=== PATIENT | female | born 1945 | race Caucasian/White ===

== ENCOUNTER 2023-10-25 21:24 | Emergency (ER) | payer OTHER ==
[~2023-10-25] VITALS: Ht 167.6 cm; Wt 70.4 kg
[2023-10-25 21:31] VITALS: TEMP 98.2
[2023-10-25 22:00] VITALS: BP 137/70; PULSE 83; RESP 18; O2SAT 98
[2023-10-25] MEDS: acetaminophen 325mg tablet PO ONE (23:11)
== END 2023-10-26 06:35 | disposition home or self-care (01) ==
LOC: ER 21:27
DX: S40.021A Contusion of right upper arm, initial encounter (principal); Z88.5 Allergy status to narcotic agent; Z91.013 Allergy to seafood; W19.XXXA Unspecified fall, initial encounter; Y93.89 Activity, other specified; Y92.89 Other specified places as the place of occurrence of the external cause; Y99.8 Other external cause status
CPT/HCPCS: 73060; 73080; 99284; A4565

== ENCOUNTER 2023-11-07 20:50 | Emergency (ER) | payer OTHER ==
[~2023-11-07] VITALS: Ht 167.6 cm; Wt 68.2 kg
[2023-11-07 21:19] VITALS: TEMP 97.7
[2023-11-07] MEDS: LIDOcaine 1% 30ml preserv. free vial IJ STA (23:13)
[2023-11-08 01:10] VITALS: BP 117/64; PULSE 98; RESP 17; O2SAT 98
[2023-11-12] MEDS ORDERED: ALEN70TA60 PO (00:21)
[2023-11-12] MEDS ORDERED: ASPI-1265 PO (00:21)
[2023-11-12] MEDS ORDERED: ARIP5TAB14 PO (00:21)
[2023-11-12] MEDS ORDERED: BUPR150T8 PO (00:22)
[2023-11-12] MEDS ORDERED: LORA10CA PO (00:23)
[2023-11-12] MEDS ORDERED: DONE10TA44 PO (00:24)
[2023-11-12] MEDS ORDERED: LORA-268 PO (00:25)
[2023-11-12] MEDS ORDERED: FOLI-91 (00:25)
[2023-11-12] MEDS ORDERED: SERT25TA PO (00:25)
[2023-11-12] MEDS ORDERED: ERGO400C PO (00:26)
[2023-11-12] MEDS ORDERED: ASPI-1140 PO (00:26)
== END 2023-11-08 01:19 | disposition home or self-care (01) ==
LOC: ER 20:50
DX: S01.511A Laceration without foreign body of lip, initial encounter (principal); Z88.5 Allergy status to narcotic agent; Z91.013 Allergy to seafood; W18.39XA Other fall on same level, initial encounter; Y93.89 Activity, other specified; Y92.89 Other specified places as the place of occurrence of the external cause; Y99.8 Other external cause status
CPT/HCPCS: 40650; 99284

== ENCOUNTER 2024-05-24 11:45 | Emergency (ER) | payer MEDICARE ==
[~2024-05-24] VITALS: Ht 167.6 cm; Wt 72.7 kg
[~2024-05-24 11:45] MED LIST: ALEN70TA60 PO; ASPI-1140 PO; ASPI-1265 PO; BUPR150T8 PO; DONE10TA44 PO; ERGO400C PO; FOLI-91; SERT25TA PO
[2024-05-24] MEDS: ondansetron/PF 4mg/2ml inj IV ONE (12:20)
[2024-05-24 12:36] LABS: BASOPHILS % (AUTO) 0.2 % (0-1); EOSINOPHILS # (AUTO) 0.1 X10'3 (0-0.9); EOSINOPHILS % (AUTO) 0.7 % (0-6); HEMATOCRIT 42.3 % (35.0-45.0); HEMOGLOBIN 13.6 g/dl (12.0-16.0); LYMPHOCYTES # (AUTO) 0.8 X10'3 (1.1-4.8); LYMPHOCYTES % (AUTO) 9.3 % (21-51); MEAN CORPUSCULAR HEMOGLOBIN 29.9 PG (27.0-31.0); MEAN CORPUSCULAR HGB CONC 32.1 g/dL (33.0-36.5); MEAN CORPUSCULAR VOLUME 92.9 FL (78-98); MEAN PLATELET VOLUME 8.6 FL (7.4-10.4); MONOCYTES # (AUTO) 0.5 X10'3 (0-0.9); MONOCYTES % (AUTO) 6.2 % (2-12); NEUTROPHILS # (AUTO) 7.2 X10'3 (1.8-7.7); NEUTROPHILS % (AUTO) 83.6 % (42-75); PLATELET COUNT 100 X10'3 (140-440); RED BLOOD COUNT 4.55 X10'6 (4.20-5.60); RED CELL DISTRIBUTION WIDTH 14.8 % (11.5-14.5); WHITE BLOOD COUNT 8.6 X10'3 (4.5-11.0)
[2024-05-24 12:38] LABS: ALANINE AMINOTRANSFERASE 30 U/L (12-78); ALBUMIN 3.2 G/DL (3.4-5.0); ALKALINE PHOSPHATASE 120 IU/L (46-116); ANION GAP 8 (8-16); ASPARTATE AMINO TRANSFERASE 22 U/L (10-37); BILIRUBIN,TOTAL 0.3 MG/DL (0.1-1.0); BLOOD UREA NITROGEN 16 MG/DL (7-18); BUN/CREATININE RATIO 16.3 (10.0-20.0); CALCIUM 9.3 MG/DL (8.5-10.1); CHLORIDE 102 MMOL/L (99-107); CREATININE 0.98 MG/DL (0.40-0.90); GLUCOSE 125 MG/DL (70-104); LIPASE 54 U/L (16-77); POTASSIUM 3.6 MMOL/L (3.5-5.1); SODIUM 138 MMOL/L (135-145); TOTAL CARBON DIOXIDE 28.1 MMOL/L (24-32); TOTAL PROTEIN 6.5 G/DL (6.4-8.2); eCRCL 44 ML/MIN; eGFR 55 ML/MIN
[2024-05-24 15:27] VITALS: TEMP 97.6
[2024-05-24 15:32] LABS: BILIRUBIN,URINE NEGATIVE (Neg); CLARITY,URINE CLOUDY (Clear); COLOR,URINE YELLOW (Yellow); GLUCOSE, URINE NEGATIVE (Neg); KETONES,URINE NEGATIVE (Neg); LEUKOCYTE ESTERASE ,URINE NEGATIVE (Neg); NITRITES, URINE NEGATIVE (Neg); OCCULT BLOOD,URINE NEGATIVE (Neg); PROTEIN,URINE NEGATIVE (Neg); UROBILINOGEN,URINE 0.2 E.U/dL (0.2-1.0)
[2024-05-24 15:37] LABS: UA COLLECTION TYPE CLN CATCH MIDSTREAM
[2024-05-24 15:38] LABS: AMORPHOUS PHOSPHATES 4+; SQUAMOUS EPITHELIAL CELL,UR FEW /LPF (FEW)
[2024-05-24 15:39] LABS: BACTERIA,URINE FEW /HPF (Neg); WBC,URINE 0-4 /HPF (0-4)
[2024-05-24 16:51] VITALS: BP 152/75; PULSE 76; RESP 15; O2SAT 99
== END 2024-05-24 17:07 | disposition home or self-care (01) ==
LOC: ER 11:46
DX: R07.89 Other chest pain (principal); R10.13 Epigastric pain; Z88.5 Allergy status to narcotic agent; Z91.013 Allergy to seafood; Z79.899 Other long term (current) drug therapy; Z79.82 Long term (current) use of aspirin
CPT/HCPCS: 36415; 71045; 80053; 81001; 83690; 84484; 85025; 93005; 96374; 99285; J2405

== ENCOUNTER 2024-10-20 22:29 | Emergency (ER) | payer MEDICARE ==
[~2024-10-20] VITALS: Ht 165.1 cm; Wt 67.1 kg
[2024-10-21 04:27] VITALS: TEMP 98.2
[2024-10-21 05:36] VITALS: BP 101/54; PULSE 68; RESP 15; O2SAT 96
== END 2024-10-21 05:46 | disposition home or self-care (01) ==
LOC: ER 22:29
DX: S00.01XA Abrasion of scalp, initial encounter (principal); F03.90 Unspecified dementia, unspecified severity, without behavioral disturbance, psychotic disturbance, mood disturbance, and anxiety; Z91.013 Allergy to seafood; Z88.5 Allergy status to narcotic agent; Z79.82 Long term (current) use of aspirin; Z79.899 Other long term (current) drug therapy; W18.39XA Other fall on same level, initial encounter; Y93.89 Activity, other specified; Y92.89 Other specified places as the place of occurrence of the external cause; Y99.8 Other external cause status
CPT/HCPCS: 70450; 72125; 93005; 99285

== ENCOUNTER 2025-08-01 07:19 | Inpatient (IN) | payer MEDICARE ==
[~2025-08-01] VITALS: Ht 165.1 cm; Wt 68.0 kg
[2025-08-01] MEDS: TETanus/Pertussis (Acell)/Diphther VAC/PF (Tdap-Adult) 0.5ml syringe IMVAC ONE (08:03)
--- NOTE | 2025-08-01 08:10 | RADIOLOGY REPORT ---
CLINICAL INFORMATION: Fall injury. TECHNIQUE: Axial imaging was obtained through the brain without contrast. Axial CT imaging of the cervical spine was also obtained without contrast. Coronal and sagittal reformatted images were obtained, reviewed, and stored. One or more of the following dose reduction techniques were used: Automated exposure control. Adjustment of mA and/or kV according to patient size. CTDIvol = 72.45 mGy DLP = 1363.41 mGy-cm COMPARISON: CT CT HEAD on DOS: 10/20/24, CT CT HEAD on DOS: 11/11/23. CT cervical spine dated 11/11/2023. FINDINGS: CT HEAD: There is no acute intracranial hemorrhage. No mass effect or midline shift. The ventricles and sulci are within normal limits in size for age. Basal cisterns are patent. Scattered areas of hypoattenuation are seen in the periventricular and subcortical white matter, which are nonspecific but most likely sequelae of small vessel ischemic disease.The calvarium is unremarkable. Paranasal sinuses and mastoid air cells are clear. CT CERVICAL SPINE: Postsurgical changes of posterior spinal fusion extending from C2 through C7. Surgical hardware is intact. Vertebral body alignment is within normal limits. Minimal anterolisthesis of C6 on C7. Vertebral body heights are maintained. No evidence of acute fracture. Multilevel severe disc space narrowing with associated endplate sclerosis and endplate spurring. Multilevel facet and uncinate hypertrophy with areas of moderate to severe neural foraminal stenosis. Prevertebral and paraspinal soft tissues are unremarkable. Moderate atherosclerotic calcification at the carotid bifurcations and proximal internal carotid arteries bilaterally. Bilateral adrenal nodules measuring up to 1 cm on the right and 0.8 cm on the left. IMPRESSION: 1. No CT evidence of acute intracranial abnormality. 2. No evidence of acute fracture in the cervical spine. 3. Postsurgical changes in the cervical spine as detailed above. Surgical hardware appears intact. 4. Degenerative disc disease and facet/ uncinate disease in the cervical spine as detailed above. 5. Bilateral adrenal nodules. Based on size and patient age, no follow-up imaging is needed for these nodules per ACR white paper on incidentally detected thyroid nodules, unless clinically indicated. 6. Additional nonacute findings as described above.
--- NOTE | 2025-08-01 08:13 | ELECTROCARDIOGRAPH REPORT ---
[facility] Test Date: 2025-08-01 Test Time: 07:29:18 Pat Name: ADELINE MEJIA Department: EMERGENCY ROOM Patient ID: [facility]-[id number] Room: Gender: F [employer] Information Clerk: ANA PAULA : 1945 Requested By: ALDO LIN Order Number: [id number] Reading MD: Dr. Aldo Lin Measurements Intervals [place] Rate: 76 P: 64 FL: 144 QRS: -2 QRSD: 89 T: 47 QT: 464 QTc: 522 Interpretive Statements Sinus rhythm Atrial premature complexes Borderline low voltage, extremity leads Minimal ST depression, lateral leads Prolonged QT interval Baseline wander in lead(s) V3 Electronically Signed On 08-01-2025 9:40:[address] Aldo Lin Please click the below link to view image of tracing.
[2025-08-01 08:23] LABS: MEAN PLATELET VOLUME 8.3 FL (7.4-10.4); RED CELL DISTRIBUTION WIDTH 14.1 % (11.5-14.5)
--- NOTE | 2025-08-01 08:31 | RADIOLOGY REPORT ---
EXAM: DI CHEST,SINGLE VIEW Indication: CHEST PAIN Technique: Single frontal view of the chest was obtained Comparison: DI CHEST,SINGLE VIEW on DOS: 05/24/24, DI CHEST,SINGLE VIEW on DOS: 11/11/23 FINDINGS: Lines and Tubes: None Lungs: Left retrocardiac opacity. Pleura: No effusion. No pneumothorax. Cardiomediastinal contours: Unremarkable. Suggestion of a large hiatal hernia. Bones: No acute osseous abnormality. IMPRESSION: Suggestion of a large hiatal hernia with left retrocardiac opacity.
[2025-08-01 08:32] LABS: CREATININE 1.02 MG/DL (0.40-0.90); TOTAL CARBON DIOXIDE 32.1 MMOL/L (24-32); eCRCL 40 ML/MIN; eGFR 52 ML/MIN
[2025-08-01 09:11] LABS: LEUKOCYTE ESTERASE ,URINE NEGATIVE (Neg); NITRITES, URINE NEGATIVE (Neg); OCCULT BLOOD,URINE NEGATIVE (Neg)
--- NOTE | 2025-08-01 09:12 | Physician Documentation ---
History of Present Illness ~ Chief Complaint: Mechanical Fall Stated Complaint: FALL Time Seen by MD: 07:26 OK to notify your PCP?: Yes Primary Medical Doctor: NONE Source: patient, RN/MD, EMS, RN notes reviewed, old records Mode of Arrival: EMS, Stretcher Exam Limitations: no limitations HPI Pleasant 79-year-old female with a history of severe dementia lives in a half-way facility. She lives with a cat. Patient fell today. She denies any chest pain for generalized weakness. She is wheelchair-bound. She takes aspirin for a stroke has some borderline ptosis but otherwise no generalized weakness. Severe dementia. Today she does not recall the events fell hit her head has a laceration approximately 2 cm in the occipital area. Unknown about the tetanus. Patient was brought in by ambulance in his here for evaluation. is at the bedside. Patient has a limited history majority of the history is obtained by EMS and medical records. Tetanus within 5 Years?: Yes Medication Reconciliation Allergies: Coded Allergies: codeine (Verified Allergy, Unknown, 08/01/25) hydrocodone (Verified Allergy, Unknown, 10/25/23) shellfish derived (Verified Allergy, Unknown, 10/25/23) Scheduled Alendronate Sodium* (Fosamax*), 1 TAB PO Q7D, (Reported) Aspirin (Aspirin), 1 TAB PO DAILY, (Reported) Bupropion Hcl SR* (Wellbutrin SR*), 1 TAB PO DAILY Cholecalciferol (Vitamin D3) (Vitamin D3), 1 CAP PO DAILY, (Reported) Donepezil Hcl (Donepezil Hcl), 1 TAB PO DAILY, (Reported) Sertraline Hcl* (Zoloft*), 1 TAB PO DAILY, (Reported) Miscellaneous Medications Aspirin/Acetaminophen/Caffeine (Excedrin Caplet), 1 EACH PO, (Reported) Folic Acid/Mv,Fe,Other Min (One Daily For Women Tablet), (Reported) Past Medical History Past Medical History: No Pertinent History Past Surgical History: noncontributory Alcohol Use: None Drug Use: none Review of Systems All Other Systems at this time: Reviewed and Negative Physical Exam Vital Signs: RN Vital Signs have been reviewed: Yes, Temperature: 97.7, Source: Oral, Heart Rate: 84, Respiratory Rate: 16, BP: 128/83, Pulse Oximetry: 97, Weight: 68.000 Oxygen Flow Rate: 0 Physical Exam General: The patient is well developed, well nourished, nontoxic appearing and is in no acute distress. Dementia Skin: Advance, warm and dry with no rashes. HEENT: Head was normocephalic and traumatic, 2 cm occipital horizontal superficial laceration bleeding controlled. Eyes - pupils equal, round, reactive to light and accommodation. Extraocular movements were intact. Conjunctivae we re nonicteric. Slight ptosis of the left upper eyelid. The mouth and oropharynx were clear with moist mucous membranes. There were no pharyngeal exudates or erythema. Neck: Supple and nontender. There was no jugular venous distention, lymphadenopathy, thyromegaly or masses. Chest: Clear to auscultation bilaterally without wheezes, rales or rhonchi. No accessory muscle use. Heart: Rate regular and rhythmic. S1, S2. No murmurs. Palpation of the chest wall was normal. Abdomen: Soft, nontender and nondistended. Positive bowel sounds. No guarding or rebound. Extremities: No cyanosis, clubbing or edema. The patient moves all extremities. Pulses were equal and symmetric. Neurologic: Cranial nerves II-XII were intact. Sensation was intact to light touch throughout. Motor strength was 5/5 in all four extremities. Deep tendon reflexes were intact in both upper and lower extremities. Slight ptosis of the left upper eyelid, wheelchair-bound Psychologic: The patient was oriented to person, place and time. The patient demonstrated appropriate judgement and insight. Procedures Procedures Head laceration and repair. Without anesthesia one suture was placed for 2 cm occipital superficial laceration to the back of her head. Patient tolerated the procedure without any complication. There was good alignment of the wound edges. Progress Progress Note Discussed the case with the hospitalist team who agreed to admit the patient for further workup and care. Results/Orders Reviewed/noted all lab results: Yes Results/Orders Orders - ZUHAIR ATKINSON MD Chest,Single View (08/01/25 08:03) Electrocardiogram (08/01/25 07:26) Ct Cervical Spine (08/01/25 07:52) Ct Head (08/01/25 07:52) Page Hospitalist (08/01/25 09:20) Fill Out Med Reconciliation (08/01/25 09:20) Completed Orders - ZUHAIR ATKINSON MD Cbc/Diff (08/01/25 07:26) MG (08/01/25 07:26) Chest,Single View (08/01/25 08:03) Electrocardiogram (08/01/25 07:26) BMP (08/01/25 07:26) Hs Troponin I W Calculations (08/01/25 07:26) Ct Cervical Spine (08/01/25 07:52) Ct Head (08/01/25 07:52) Tetanus/Pertuss/Diph Acell/Pf (Boostrix (08/01/25 07:30) Ua W/Microscopic, Cult If Ind (08/01/25 09:04) Aspirin 325mg Tablet (Aspirin 325mg Tabl (08/01/25 09:30) Medications Received in ER Medications (Trade) Dose Ordered Sig/Ruyd Route PRN Reason Start Time Stop Time Status Last Admin Dose Admin (Boostrix vaccine syringe) 0.5 ml ONCE ONCE IMVAC 08/01/25 07:30 08/01/25 07:31 DC 08/01/25 08:03 0.5 ML (aspirin 325mg tablet) 1 tab ONCE ONCE PO 08/01/25 09:30 08/01/25 09:31 DC 08/01/25 09:39 1 TAB Vital Signs 08/01/25 08/01/25 08/01/25 08/01/25 07:23 08:30 08:30 09:38 Temp 97.7 Pulse 76 84 85 Resp 16 16 16 16 B/P (MAP) 134/67 128/83 (98) 142/64 (90) Pulse Ox 98 97 95 O2 Flow Rate 0 0 0 Laboratory Tests Test 08/01/25 08:11 08/01/25 09:04 White Blood Count 8.4 Red Blood Count 4.21 Hemoglobin 13.5 Hematocrit 40.7 Mean Corpuscular Volume 96.7 Mean Corpuscular Hemoglobin 32.1 H Mean Corpuscular Hemoglobin Concent 33.2 Red Cell Distribution Width 14.1 Platelet Count 191 Mean Platelet Volume 8.3 Neutrophils (%) (Auto) 77.6 H Lymphocytes (%) (Auto) 14.3 L Monocytes (%) (Auto) 6.6 Eosinophils (%) (Auto) 1.0 Basophils (%) (Auto) 0.5 Neutrophils # (Auto) 6.5 Lymphocytes # (Auto) 1.2 Monocytes # (Auto) 0.6 Eosinophils # (Auto) 0.1 Basophils # (Auto) 0.0 CBC Comment Sodium Level 143 Potassium Level 3.8 Chloride Level 107 Carbon Dioxide Level 32.1 H Anion Gap 4 L Blood Urea Nitrogen 25 H Creatinine 1.02 H Estimated GFR/1.73 m2 52 BUN/Creatinine Ratio 24.5 H Glucose Level 88 Calcium Level 8.8 Magnesium Level 2.2 Troponin I High Sensitivity 119 *H Albumin 3.2 L Chemistry Comments Urine Specimen Description Non-specified Urine Color Yellow Urine Clarity Cloudy Urine pH 8.0 Urine Specific [place] 1.015 Urine Protein Negative Urine Glucose (UA) Negative Urine Ketones Negative Urine Occult Blood Negative Urine Nitrite Negative Urine Bilirubin Negative Urine Urobilinogen 0.2 Urine Leukocyte Esterase Negative Urine RBC 0-2 Urine WBC 0-4 Urine Squamous Epithelial Cells Few Urine Amorphous Phosphates 4+ Urine Bacteria None seen Urine Culture Indicated Not ind Volume Urine Centrifuged 10 ml Urine Comment Re-Evaluation Re-Evaluation : Re-Evaluation: Unchanged Progress Patient was seen and examined. Patient was given reassurance. Patient has a history of multiple falls. Laboratory work was obtained. CBC was within normal limits no leukocytosis no anemia unlikely to be infectious etiology. Chemistry however did show a troponin of 119. EKG has a prolonged QTC but no ST elevations order depression. Patient is asymptomatic. She lives in assisted living has significant dementia history of prior stroke listed as ptosis she is wheelchair-bound takes daily aspirin. Patient's urinalysis was within normal limits CT scan of the head and neck were within normal limits no intracranial bleed. Patient was given aspirin and admitted to the hospitalist service after her wounds were repaired. She appears well otherwise. Has been at the bedside. EKG/XRAY/CT/US/VASC/MRI Chest X-Ray : Interpreted By: both Views: 1 VIEW Additional Comments EXAM: DI CHEST,SINGLE VIEW Indication: CHEST PAIN Technique: Single frontal view of the chest was obtained Comparison: DI CHEST,SINGLE VIEW on DOS: 05/24/24, DI CHEST,SINGLE VIEW on DOS: 11/11/23 FINDINGS: Lines and Tubes: None Lungs: Left retrocardiac opacity. Pleura: No effusion. No pneumothorax. Cardiomediastinal contours: Unremarkable. Suggestion of a large hiatal hernia. Bones: No acute osseous abnormality. IMPRESSION: Suggestion of a large hiatal hernia with left retrocardiac opacity. : CT: head With Contrast?: No Impression CLINICAL INFORMATION: Fall injury. TECHNIQUE: Axial imaging was obtained through the brain without contrast. Axial CT imaging of the cervical spine was also obtained without contrast. Coronal and sagittal reformatted images were obtained, reviewed, and stored. One or more of the following dose reduction techniques were used: Automated exposure control. Adjustment of mA and/or kV according to patient size. CTDIvol = 72.45 mGy DLP = 1363.41 mGy-cm COMPARISON: CT CT HEAD on DOS: 10/20/24, CT CT HEAD on DOS: 11/11/23. CT cervical spine dated 11/11/2023. FINDINGS: CT HEAD: There is no acute intracranial hemorrhage. No mass effect or midline shift. The ventricles and sulci are within normal limits in size for age. Basal cisterns are patent. Scattered areas of hypoattenuation are seen in the periventricular and subcortical white matter, which are nonspecific but most likely sequelae of small vessel ischemic disease.The calvarium is unremarkable. Paranasal sinuses and mastoid air cells are clear. CT CERVICAL SPINE: Postsurgical changes of posterior spinal fusion extending from C2 through C7. Surgical hardware is intact. Vertebral body alignment is within normal limits. Minimal anterolisthesis of C6 on C7. Vertebral body heigh ts are maintained. No evidence of acute fracture. Multilevel severe disc space narrowing with associated endplate sclerosis and endplate spurring. Multilevel facet and uncinate hypertrophy with areas of moderate to severe neural foraminal stenosis. Prevertebral and paraspinal soft tissues are unremarkable. Moderate atherosclerotic calcification at the carotid bifurcations and proximal internal carotid arteries bilaterally. Bilateral adrenal nodules measuring up to 1 cm on the right and 0.8 cm on the left. IMPRESSION: 1. No CT evidence of acute intracranial abnormality. 2. No evidence of acute fracture in the cervical spine. 3. Postsurgical changes in the cervical spine as detailed above. Surgical hardware appears intact. 4. Degenerative disc disease and facet/ uncinate disease in the cervical spine as detailed above. 5. Bilateral adrenal nodules. Based on size and patient age, no follow-up imaging is needed for these nodules per ACR white paper on incidentally detected thyroid nodules, unless clinically indicated. 6. Additional nonacute findings as described above. Electronically Signed by:RICH FOOTE DO Ultrasound : Interpreted By: both Ultrasound of: head/neck Impression CLINICAL INFORMATION: Fall injury. TECHNIQUE: Axial imaging was obtained through the brain without contrast. Axial CT imaging of the cervical spine was also obtained without contrast. Coronal and sagittal reformatted images were obtained, reviewed, and stored. One or more of the following dose reduction techniques were used: Automated exposure control. Adjustment of mA and/or kV according to patient size. CTDIvol = 72.45 mGy DLP = 1363.41 mGy-cm COMPARISON: CT CT HEAD on DOS: 10/20/24, CT CT HEAD on DOS: 11/11/23. CT cervical spine dated 11/11/2023. FINDINGS: CT HEAD: There is no acute intracranial hemorrhage. No mass effect or midline shift. The ventricles and sulci are within normal limits in size for age. Basal cisterns are patent. Scattered areas of hypoattenuation are seen in the periventricular and subcortical white matter, which are nonspecific but most likely sequelae of small vessel ischemic disease.The calvarium is unremarkable. Paranasal sinuses and mastoid air cells are clear. CT CERVICAL SPINE: Postsurgical changes of posterior spinal fusion extending from C2 through C7. Surgical hardware is intact. Vertebral body alignment is within normal limits. Minimal anterolisthesis of C6 on C7. Vertebral body heights are maintained. No evidence of acute fracture. Multilevel severe disc space narrowing with associated endplate sclerosis and endplate spurring. Multilevel facet and uncinate hypertrophy with areas of moderate to severe neural foraminal stenosis. Prevertebral and paraspinal soft tissues are unremarkable. Moderate atherosclerotic calcification at the carotid bifurcations and proximal internal carotid arteries bilaterally. Bilateral adrenal nodules measuring up to 1 cm on the right and 0.8 cm on the left. IMPRESSION: 1. No CT evidence of acute intracranial abnormality. 2. No evidence of acute fracture in the cervical spine. 3. Postsurgical changes in the cervical spine as detailed above. Surgical hardware appears intact. 4. Degenerative disc disease and facet/ uncinate disease in the cervical spine as detailed above. 5. Bilateral adrenal nodules. Based on size and patient age, no follow-up imaging is needed for these nodules per ACR white paper on incidentally detected thyroid nodules, unless clinically indicated. 6. Additional nonacute findings as described above. Electronically Signed by:RICH FOOTE DO Date & Time: 08/01/25 0808 Heart Score: Heart Score Response (Comments) Value History Slightly Suspicious 0 EKG Repolarization Disturb 1 Age >65 2 Risk Factors 1 or 2 risk factors 1 Troponin >3 x's Normal limit 2 Total 6 Medical Decision Making Additional information obtaine: old records Findings See progress additional differential mentioned Differential Dx:Considerations: Include: Closed head injury, Cardiac injury, Fracture(s), Intraabdominal injury, Pneumothorax, Cerebral contusion, Pulmonary contusion, Spine injury, Tracheal injury, Urological injury, Vascular injury, Abrasion(s), Contusion(s), Foreign body(s), Hematoma(s), Laceration(s), Encephalopathy, Other Departure Disposition: 09 ADMITTED INPATIENT Admitted to Inpatient Unit: to hospitalist Admission Level of Care: PCU with Tele Impression: Primary Impression: NSTEMI (non-ST elevated myocardial infarction) Additional Impressions: Fall Qualified Codes: W19.XXXA - Unspecified fall, initial encounter Laceration of head Qualified Codes: S01.01XA - Laceration without foreign body of scalp, initial encounter Condition: Guarded Referrals: NO PRIMARY CARE PROVIDER (PCP) Education Educated: Patient Educated regarding: diagnosis, other Signature Scribe Signature: lp Attestation: The note accurately reflects work and decisions made by me.Zuhair Atkinson MD 08/01/25 09:11 ZUHAIR ATKINSON MD Aug 01, 2025 09:12
[2025-08-01 09:16] LABS: UA COLLECTION TYPE NON-SPECIFIED
[2025-08-01 09:19] LABS: AMORPHOUS PHOSPHATES 4+; SQUAMOUS EPITHELIAL CELL,UR FEW /LPF (FEW)
[2025-08-01] MEDS ORDERED: magnesium sulf-water 2g/50mL 50 ML IV PRN (11:25)
[2025-08-01] MEDS ORDERED: mag hydrox/Alum hydrox/simeth 30ml oral suspension PO PRN (11:25)
[2025-08-01] MEDS ORDERED: magnesium sulf-water 4G/100mL 100 ML IV PRN (11:25)
[2025-08-01] MEDS ORDERED: potassium Cl 20 mEq SR tablet PO PRN (11:25)
[2025-08-01] MEDS ORDERED: ondansetron/PF 4mg/2ml inj IV PRN (11:25)
[2025-08-01] MEDS ORDERED: potassium Cl 40MEQ/1/2NS 520ml 520 ML IV PRN (11:25)
[2025-08-01] MEDS ORDERED: magnesium Cl slow-release 64mg tablet PO PRN (11:25)
[2025-08-01] MEDS ORDERED: magnesium hydroxide 30ml (MOM) UD suspension PO PRN (11:25)
[2025-08-01] MEDS: normal saline 1000ml 1,000 ML IV SCH (11:49)
[2025-08-01 12:39] LABS: APTT 28 SECONDS (22-32); INR 1.1 INR
[2025-08-01 12:46] LABS: CREATININE 0.80 MG/DL (0.40-0.90); PHOSPHORUS 2.7 MG/DL (2.3-4.5); PRO BRAIN NATRIURETIC PEPTIDE 637 PG/ML (0-450); TOTAL CARBON DIOXIDE 28.9 MMOL/L (24-32); eCRCL 51 ML/MIN; eGFR 69 ML/MIN
[2025-08-01 14:41] VITALS: BP 121/59; PULSE 95; RESP 14; TEMP 98.7; O2SAT 96
--- NOTE | 2025-08-01 16:16 | HISTORY AND PHYSICAL-Residence ---
History & Physical Providers to CC Resident Creating Document: GENARO ALEXANDER, RES ~ History of Present Illness Primary Medical Doctor: IVA FARMER MD Reason for Admit\Complaint: Mechanical fall History of Present Illness Patient is a poor historian, history obtained from patient step-daughter (Annia- [phone])and son in law (Miko -[phone] ) and [facility] ([id number] ): A 78 years old female who is poor historian, history of Alzheimer's and dementia presented to ED via EMS from [facility] after a mechanical fall. Patient was doing well untill yesterday, today morning around 6:30 a.m. when she wake up, tried to get out of the bed to use the restroom, and had a ground level fall after 2-3 steps, no one witnessned event. Patient bed alarm was beeped, the nurse went and saw the patient on ground, with laceration on back of the head. As per the facility nurse, patient did not lost the consciousness or no altered mental status , no confusion, patient has gait and coordination problems and she is high risk for fall.Patient has history of multiple recurrent falls for the last 1-2 years. Patient even forgot to use wheelchair and falls in her room, multiple times. Patient denies headache, dizziness, fatigue, chest pain, difficulty in breathing, abdominal pain, acid reflux, abdominal distention, swellings. Patient takes medication for anxiety, depression. Patient reports that she does not have any family except step- daughter and son-in-law. Patient has advanced medical directive stating that patient should be on DNR / DNI and power of trial attorney is Florencia (patient's friend ) Allergies: Coded Allergies: codeine (Verified Allergy, Unknown, 08/01/25) hydrocodone (Verified Allergy, Unknown, 10/25/23) shellfish derived (Verified Allergy, Unknown, 10/25/23) Home Medications Home Medications Active Wellbutrin SR* (Bupropion HCl) 150 Mg Tablet.sa 1 Tab PO DAILY 30 Days LOOK-ALIKE SOUND-ALIKE DRUG buSPIRone & buPROPion Reported Excedrin Caplet (Aspirin/Acetaminophen/Caffeine) 250 Mg-250 Mg-65 Mg Tablet 1 Each PO Vitamin D3 (Cholecalciferol (Vitamin D3)) 10 Mcg (400 Unit) Capsule 1 Cap PO DAILY 30 Days Zoloft* (Sertraline HCl) 25 Mg Tablet 1 Tab PO DAILY 30 Days One Daily For Women Tablet (Folic Acid/Mv,Fe,Other Min) 0.4 Mg-18 Mg Tablet Donepezil Hcl 10 Mg Tablet 1 Tab PO DAILY 30 Days Aspirin 81 Mg Tab.chew 1 Tab PO DAILY 30 Days Fosamax* (Alendronate Sodium) 70 Mg Tablet 1 Tab PO Q7D 28 Days in the morning, at least 30 minutes before the first food, beverage, or medication of the day Past Medical History Past Medical History Alzheimer's Dementia Depression Anxiety Osteoporosis Past Surgical History Surgical History Comment Right knee surgery C-spine surgery Past Social History Social History Comment Patient lives at [facility] Smoking: Non-Smoker Alcohol Use: None Drug Use: None ROS All Other Systems: Reviewed and Negative ROS Constitutional: No fever, chills, dizziness, weight gain or loss, night sweats Eyes: No pain, erythema, discharge, blurring of vision ENT: No sore throat, epistaxis, tinnitus Cardiovascular:No chest pain, palpitations, syncope, lower extremity edema, paroxysmal nocturnal dyspnea Respiratory: No Shortness of breath and cough, No hemoptysis. Gastrointestinal:No Abdominal pain, vomiting,nausea and melena. Normal appetite. No constipation,diarrhea, hematemesis, Musculoskeletal: No swelling or edema of extremities. Integumentary: No change in skin, hair, nails. No swelling, bruising, abrasions Neurologic: No weakness,No headache, neck pain, numbness or tingling of the extremities, Psychiatric: No delusions, depression, loss of interest in normal activity or change in sleep pattern, hallucinations, suicidal ideations Endocrine: No fatigue, no weakness. polydipsia, polyuria, change in appetite, heat or cold intolerance, sweating, dry skin Hematological: No bleeding, petechiae, bruising Allergies: No asthma or urticaria Exam Vitals: Vital Signs Date Time Temp Pulse Resp B/P (MAP) Pulse Ox O2 Delivery O2 Flow Rate FiO2 08/01/25 15:08 93 08/01/25 14:41 98.7 14 121/59 (79) 96 Room Air 08/01/25 13:55 0 General: Awake , alert and oriented to time,place, person,not in distress HEENT: Mild laceration with xavi in occipital region of head, normocephalic, PERRLA, EOMI, anicteric sclera ; pink conjunctiva, moist mucos membranes Neck: Trachea midline. Supple, normal range of motion, no JVD, no lymphadenopathy Chest and Respiratory: Equal breath sounds bilaterally, no tachypnea, wheezing, ronchi,rubs .Chest wall is symmetric and without deformity. Cardiac: S1, S2 heard,Regular rate and rhythm, no murmurs ,no gallops, no rubs. Abdomen: Soft, No tenderness, No guarding or rigidity, Dinero's sign negative. normal bowel sounds x4 quadrant, no hepatosplenomegaly MSK: Range of motion of all extremities are normal. There is no joint pain or joint swelling or joint erythema. There is no muscle pain or tenderness or swelling. Multiple bruises over upper extremities. Contractures in both hands. Right knee surgical scar. Cervical spine scar. Extremities: warm, well-perfused, No cyanosis, clubbing, 2+ pulses felt Neurological: Mental status exam: alert and consciousness, orientation, memory, speech - Cranial nerve test: Cranial nerves II-XII intact. - Motor system: Normal Nutrition, normal tone, Power 5/5, no involuntary movements - Sensory system: Intact - Reflex testing: Biceps, triceps and knee reflexes 2+ - Cerebellar: Normal Skin: Warm and dry Diagnostic Data Last Recorded Lab Results: 08/01/25 0811 08/01/25 1214 Diagnostic Data: Laboratory Tests Test 08/01/25 12:14 Prothrombin Time 10.9 SECONDS (9.0-12.0) INR International Normalized Ratio 1.1 INR Activated Partial Thromboplast Time 28 SECONDS (22-32) Coagulation Comments Advance Care Planning Advanced Care plannin - 30 Minutes (Patient does not have any advance medical directive, considering old age ,severe dementia and Alzheimer's disease, poor decision-making capacity of the patient, code status was discussed with patient step-daughter and son-in-law and decided to be on DNR/DNI) Additional Plan Mechanical fall History of recurrent falls 2/2 Age-related deconditioning Balance and Gait Imbalance likely due to autonomic imbalance CT head and Ct spine-no acute abnormality Vitals are stable, Coagulation profile is normal CBC, urinalysis are normal, no electrolyte imbalances Follow up on TSH, HbA1c, orthostatic vitals Type 2 [place] with unknown etiology Patient has no chest pain and low heart score of 3. Serial troponins are 119,102 BNP 637, patient appears dry, no fluid overload and elevated BNP may be due to CHRISTOPHER EKG shows sinus rhythm with PACs and no ST changes. Telemetry showing sinus rhythm and continue telemetry monitoring Subcutaneous heparin 5000 units b.i.d. Continue aspirin 81 mg p.o. , atorvastatin 80 mg p.o. daily Follow up on echocardiogram Outpatient Cardiology referral for evaluation of PACs. Mild CHRISTOPHER, likely prerenal 2/2 vasomotor nephropathy Creatinine is 1.02, BUN 25, B/C -24, GFR-52, down trending IV NS @ 100 mL/hour Monitor BMP levels Hyperlipidemia LDL is 185 Started on atorvastatin 80 mg p.o. daily Hiatal hernia CXR shows incidental finding of large hiatal hernia with left retrocardiac opacity. Recommended outpatient management Alzheimer's disease Patient has severe dementia and continue home medication donepezil 10 mg p.o. daily Anxiety Continue home medications sertraline 25 mg p.o. daily Depression Continue home medication Wellbutrin 150 mg p.o. daily Osteoporosis Continue home medication Alendronate 70mg p.o. Q 7 D Code status: DNR/DNI DVT prophylaxis : Heparin Nutrition: Heart healthy Physical therapy: ordered Line/tube: PIV Analgesia/sedation: Morphine PRN Disposition: Continue telemetry monitoring, follow up on troponin levels, echocardiogram, PT evaluation & discharge plan Resident attestation The above note has been reviewed and supervised by a senior resident PGY2/PGY3 Patient was seen, examined and discussed with the attending physician, Dr. VANESA Alexander MD Internal Medicine Resident, PGY 1 Date of Service: Aug 01, 2025 Billing Provider: RADHA ALEXIS MD Common Visit Codes: [id number] INP/OBS CARE (HIGH) Secondary Visit Codes: [id number] CARE PLAN 30 MINUTES GENARO ALEXANDER, RES Aug 01, 2025 16:16 RADHA ALEXIS MD Aug 09, 2025 07:42
[2025-08-01 16:17] LABS: CHOL/HDL RATIO 3.8 (0.00-4.99); LDL CHOLESTEROL 185 MG/DL (50-100)
[2025-08-01 17:10] VITALS: RESP 16; O2SAT 96
[2025-08-01] MEDS ORDERED: non-formulary drug (Alendronate Sodium* (Fosamax*) 1 TAB) PO SCH (17:20)
[2025-08-01 18:00] VITALS: BP 131/51; PULSE 122; RESP 18; TEMP 97.8; O2SAT 96
--- NOTE | 2025-08-01 18:09 | CARDIOLOGY REPORT ---
APPROVED REPORT EXAM: Comprehensive 2D, Doppler, and color-flow Echocardiogram. Patient Location: [address] Blood Pressure: 121/59 mmHg Heart Rate: 94 bpm Rhythm: SINUS w/FREQUENT PACs Indications ABNORMAL EKG HS TROPONIN 119 Robot Technician: none Previous echo: 11/12/23 [facility] (EF 60-65%, mild MR, mild TR) 2D Dimensions RVDd 3.1 cm LA Diam 6.5 cm LVOT Diameter 2.00 (1.8-2.4cm) Ao Asc Diam. 2.74 cm IVC 17.36 mm M-Mode Dimensions Left Atrium(MM) 2.21 (2.5-4.0cm) Aortic Root 2.72 (2.2-3.7cm) Aortic Cusp Exc 1.70 (1.5-2.0cm) Biplane 2D LA Volumes LA ESV Index 68.75 mL/m2 Aortic Valve AoV Peak Saulo. 144.6 cm/s AoV VTI 25.3 cm AO Peak GR. 8.4 mmHg AO Mean GR. 4 mmHg LVOT VTI 23.26 cm LVOT Peak Saulo. 116.5 cm/s VANESSA(VTI)/BSA 2.88 cm2/m2 VANESSA (VTI) 2.88 cm2 AV DI 0.92 % Mitral Valve MV Peak Gr. 3 mmHg MV PHT 52 ms MVA (PHT) 4.23 cm2 MV VMax 93.1 cm/s Tricuspid Valve TR P. Velocity 269 cm/s RAP ESTIMATE 10 mmHg TR Peak Gr. 29 mmHg RVSP 39 mmHg LEFT VENTRICLE Normal LV size and function. Mild concentric hypertrophy. LVEF is 60-65%. RIGHT VENTRICLE RV is normal size and function. Thickened RV free wall. RVSP is estimated at 39 mmHg. ATRIA Left atrium is severely dilated. RA appears mildly dilated. AORTIC VALVE Trileaflet AV appears mildly sclerotic without stenosis or insufficiency. MITRAL VALVE Mild MV annular calcification without stenosis. Moderate regurgitation. TRICUSPID VALVE TV appears structurally normal with trace regurgitation. PULMONIC VALVE Normal PV without stenosis, physiologic insufficiency. GREAT VESSELS Aortic root is normal in size. Ascending aorta is normal in size. The IVC is normal in size and collapses greater than 50% with inspiration. PERICARDIUM Normal pericardium. No effusion. Other Information Study Quality: Adequate Conclusion Normal LV size and function. Mild concentric hypertrophy. LVEF is 60-65%. RV is normal size and function. Thickened RV free wall. RVSP is estimated at 39 mmHg. Left atrium is severely dilated. RA appears mildly dilated. Trileaflet AV appears mildly sclerotic without stenosis or insufficiency. Mild MV annular calcification without stenosis. Moderate regurgitation. TV appears structurally normal with trace regurgitation. Normal pericardium. No effusion.
[2025-08-01 19:00] VITALS: RESP 14
[2025-08-01] MEDS: heparin, porcine 5000 units/ml vial SQ SCH (19:42)
[2025-08-01] MEDS: docusate sod 100mg capsule PO SCH (19:43)
[2025-08-01] MEDS: K and/or MAG REPLACEMENT MC SCH (20:00)
[2025-08-01] MEDS ORDERED: heparin, porcine 5000 units/ml vial SQ SCH (20:00)
[2025-08-01] MEDS: buPROPion SR 150mg tablet PO SCH (20:03)
[2025-08-01 22:00] VITALS: BP 112/56; PULSE 75; RESP 12; TEMP 97.2; O2SAT 97
[2025-08-02 06:00] VITALS: BP 113/69; PULSE 81; RESP 12; TEMP 97.4; O2SAT 95
[2025-08-02 06:01] VITALS: BP 110/56; PULSE 74; RESP 15; TEMP 97.4; O2SAT 97
[2025-08-02 06:24] LABS: MEAN PLATELET VOLUME 10.3 FL (7.4-10.4); RED CELL DISTRIBUTION WIDTH 14.1 % (11.5-14.5)
[2025-08-02 06:40] LABS: CHOL/HDL RATIO 3.9 (0.00-4.99); CREATININE 0.75 MG/DL (0.40-0.90); LDL CHOLESTEROL 157 MG/DL (50-100); TOTAL CARBON DIOXIDE 27.4 MMOL/L (24-32); eCRCL 55 ML/MIN; eGFR 75 ML/MIN
[2025-08-02] MEDS: donepezil 5mg tablet PO SCH (07:00)
[2025-08-02] MEDS: bisacodyl 10mg suppository rectal RC STA (07:00)
[2025-08-02] MEDS: cholecalciferol (vitamin D3) 400 unit (10mcg) tablet PO SCH (07:01)
[2025-08-02] MEDS ORDERED: metoprolol tartrate 1mg/ml inj IV PRN (07:10)
[2025-08-02] MEDS ORDERED: regadenoson 0.4mg/5ml syringe IV PRN (07:10)
[2025-08-02] MEDS ORDERED: aminophylline 250mg/10ml inj. IV PRN (07:10)
[2025-08-02 08:00] VITALS: RESP 16; O2SAT 96
[2025-08-02] MEDS: potassium Cl 20 mEq SR tablet PO PRN (08:44)
[2025-08-02 10:00] VITALS: BP 102/55; PULSE 61; RESP 18; TEMP 98; O2SAT 99
--- NOTE | 2025-08-02 17:34 | PROGRESS NOTE- Residence ---
Progress Note - Resident Providers to CC Resident Creating Document: GENARO MAYES, RES ~ Antibiotic Timeout Antibiotic Ordered?: No Subjective Patient was seen and examined at bedside. Patient is awake, oriented to time place and person at the moment. Patient denies any pain or any other complaints at the moment. No acute overnight symptoms noted. Patient denies any pain in the chest or chest discomfort or difficulty in breathing or abdominal pain or lightheadedness at the moment. Patient has advanced medical directive stating that patient should be on DNR / DNI and power of uniform cap operator is Florencia (patient's friend ) Objective Vital Signs Date Time Temp Pulse Resp B/P (MAP) Pulse Ox O2 Delivery O2 Flow Rate FiO2 08/02/25 15:55 14 08/02/25 10:00 98.0 61 102/55 (71) 99 Room Air 08/02/25 08:00 0.0 Result Diagram: 08/02/2552608/02/25 05 Awake , alert and oriented to time,place, person,not in distress, wheelchair- bound HEENT: Mild laceration with xavi in occipital region of head, normocephalic, PERRLA, EOMI, anicteric sclera ; pink conjunctiva, moist mucos membranes Neck: Trachea midline. Supple, normal range of motion, no JVD, no lymphadenopathy Chest and Respiratory: Equal breath sounds bilaterally, no tachypnea, wheezing, ronchi,rubs .Chest wall is symmetric and without deformity. Cardiac: S1, S2 heard,Regular rate and rhythm, no murmurs ,no gallops, no rubs. Abdomen: Soft, No tenderness, No guarding or rigidity, Dinero's sign negative. normal bowel sounds x4 quadrant, no hepatosplenomegaly MSK: Range of motion of all extremities are normal. There is no joint pain or joint swelling or joint erythema. There is no muscle pain or tenderness or swelling. Multiple bruises over upper extremities. Contractures in both hands. Right knee surgical scar. Cervical spine scar. Extremities: warm, well-perfused, No cyanosis, clubbing, 2+ pulses felt Neurological: Mental status exam: alert and consciousness, orientation, memory, speech - Cranial nerve test: Cranial nerves II-XII intact. - Motor system: Normal Nutrition, normal tone, Power 5/5, no involuntary movements - Sensory system: Intact - Reflex testing: Biceps, triceps and knee reflexes 2+ - Cerebellar: Normal Skin: Warm and dry Coagulation Studies Laboratory Tests Test 08/01/25 12:14 Prothrombin Time 10.9 SECONDS (9.0-12.0) INR International Normalized Ratio 1.1 INR Activated Partial Thromboplast Time 28 SECONDS (22-32) Coagulation Comments Plan Plan Mechanical fall History of recurrent falls 2/2 Age-related deconditioning Balance and Gait Imbalance likely due to autonomic imbalance CT head and Ct spine-no acute abnormality Vitals are stable, Coagulation profile is normal CBC, urinalysis are normal, no electrolyte imbalances TSH and HB A1c are normal Fall precautions in place Type 2 [place] with unknown etiology Patient has no chest pain and low heart score of 3. Serial troponins are 119,102,122,202,113 BNP 637, patient appears dry, no fluid overload and elevated BNP may be due to CHRISTOPHER EKG shows sinus rhythm with PACs and no ST changes. Telemetry showing sinus rhythm and continue telemetry monitoring Subcutaneous heparin 5000 units b.i.d. Continue aspirin 81 mg p.o. , atorvastatin 80 mg p.o. daily Shows EF of 60-65%, moderate MR, RVSP of 39 mm of Hg. Outpatient Cardiology referral for evaluation of PACs. Patient has severe dementia with Alzheimer's disease, power of uniform cap operator Florencia, patient is alert, awake and oriented at the time of discussion, both power of uniform cap operator and patient does not want Lexiscan in view of suspicion of acute coronary syndrome. Mild CHRISTOPHER, likely prerenal 2/2 vasomotor nephropathy, resolved Renal parameters came back to normal IV NS @ 100 mL/hour Monitor BMP levels Hyperlipidemia LDL is 185 Started on atorvastatin 80 mg p.o. daily Hiatal hernia CXR shows incidental finding of large hiatal hernia with left retrocardiac opacity. Recommended outpatient management Alzheimer's disease Patient has severe dementia and continue home medication donepezil 10 mg p.o. daily Anxiety Continue home medications sertraline 25 mg p.o. daily Depression Continue home medication Wellbutrin 150 mg p.o. daily Osteoporosis Continue home medication Alendronate 70mg p.o. Q 7 D DISPOSITION: Continue telemetry monitoring, if patient is stable and anticipate discharge to previous nursing facility next 24 hours Code status: DNR/DNI DVT prophylaxis : Heparin Nutrition: Heart healthy Physical therapy: ordered Line/tube: PIV Analgesia/sedation: Morphine PRN Date of Service: Aug 02, 2025 Billing Provider: RADHA ALEXIS MD Common Visit Codes: [id number] INP/OBS CARE(HIGH) GENARO MAYES, RES Aug 02, 2025 17:34 RADHA ALEXIS MD Aug 09, 2025 07:42
[2025-08-02 18:30] VITALS: BP 127/53; PULSE 82; RESP 16; TEMP 97.3; O2SAT 98
[2025-08-02 22:00] VITALS: BP 113/51; PULSE 79; RESP 17; TEMP 97.3; O2SAT 96
[2025-08-03 05:54] LABS: CREATININE 0.67 MG/DL (0.40-0.90); TOTAL CARBON DIOXIDE 23.0 MMOL/L (24-32); eCRCL 61 ML/MIN; eGFR 85 ML/MIN
[2025-08-03 06:00] VITALS: BP 127/74; PULSE 72; RESP 14; TEMP 97.8; O2SAT 96
[2025-08-03 06:00] LABS: MEAN PLATELET VOLUME 10.4 FL (7.4-10.4); RED CELL DISTRIBUTION WIDTH 14.1 % (11.5-14.5)
[2025-08-03 08:00] VITALS: BP 127/74; PULSE 72; RESP 14; O2SAT 96
[2025-08-03 10:00] VITALS: BP 121/62; PULSE 79; RESP 15; TEMP 98.6; O2SAT 95
[2025-08-03] MEDS ORDERED: ATOR20TA66 PO (14:01)
--- NOTE | 2025-08-03 19:01 | DISCHARGE SUMMARY-Residence ---
Discharge Summary Providers to CC Resident Creating Document: BENJAMINGENAROALEXIS EDDY, RES ~ Discharge Summary Admission Diagnosis: mechanical fall, elevated troponins Hospital Course DATE OF ADMISSION: 08/01/25 DATE OF DISCHARGE: 08/03/25 Discharge Diagnosis\Comment: Mechanical fall Age-related deconditioning Balance and Gait Imbalance likely due to autonomic imbalance Type 2 OK with unknown etiology Mild CHRISTOPHER, likely prerenal 2/2 vasomotor nephropathy, resolved Hyperlipidemia Hiatal hernia Alzhiemer's disease Anxiety Depression osteoporosis Operations\Procedures: None Consultants: None Complications: None Condition on DC: Stable New Medications: Atorvastatin Calcium (Atorvastatin Calcium) 20 Mg Tablet 40 MG PO DAILY for 30 Days, #60 TAB Continued Medications: Alendronate Sodium* (Fosamax*) 70 Mg Tablet 1 TAB PO Q7D for 28 Days, #4 TAB in the morning, at least 30 minutes before the first food, beverage, or medication of the day Aspirin (Aspirin) 81 Mg Tab.chew 1 TAB PO DAILY for 30 Days, #30 TAB Bupropion Hcl SR* (Wellbutrin SR*) 150 Mg Tablet.sa 1 TAB PO DAILY for 30 Days, #30 TAB LOOK-ALIKE SOUND-ALIKE DRUG buSPIRone & buPROPion Cholecalciferol (Vitamin D3) (Vitamin D3) 10 Mcg (400 Unit) Capsule 1 CAP PO DAILY for 30 Days, #30 CAP 0 Refills Donepezil Hcl (Donepezil Hcl) 10 Mg Tablet 1 TAB PO DAILY for 30 Days, #30 TAB 0 Refills Folic Acid/Mv,Fe,Other Min (One Daily For Women Tablet) 0.4 Mg-18 Mg Tablet Sertraline Hcl* (Zoloft*) 25 Mg Tablet 1 TAB PO DAILY for 30 Days, #30 TAB 0 Refills Discontinued Medications: Aspirin/Acetaminophen/Caffeine (Excedrin Caplet) 250 Mg-250 Mg-65 Mg Tablet 1 EACH PO, TAB Discharge Summary: Course in the hospital: Patient is a poor historian, history obtained from patient step-daughter (Annia- [phone])and son in law (Miko -[phone] ) and [facility] ([id number] ): A 78 years old female who is poor historian, history of Alzheimer's and dementia presented to ED via EMS from [facility] after a mechanical fall. Patient bed alarm was beeped, the nurse went and saw the patient on ground, with laceration on back of the head. As per the facility nurse, patient did not lost the consciousness or no altered mental status , no confusion, patient has gait and coordination problems and she is high risk for fall.Patient has history of multiple recurrent falls for the last 1-2 years. Patient even forgot to use wheelchair and falls in her room, multiple times. CT head and CT spine showed no acute abnormality. Laceration was closed with xavi. Vitals are stable. Coagulation profile, CBC, urinalysis and electrolytes, TSH, HbA1c are normal. Patient has no chest pain and heart score but there is mild elevation of troponin probably secondary to fall and stress. EKG showed normal sinus rhythm with no ST changes PACS. Echocardiogram showed normal ejection fraction of 65% with moderate MR and RVSP of 39 mm of Hg. Patient was treated with aspirin and atorvastatin. 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 Patient has mild kidney injury which was resolved with IV and oral hydration.Patient was discharged back to her facility. During the discharge patient was advised to review her medications with her primary care physician and cut down on antidepressants, antipsychotics. She was also advised to be well-hydrated. Outpatient Cardiology referral for evaluation of PACs. Counseled about getting neurology referral for further evaluation of gait and balance problem. Imaging: Cervical spine CT-08/01/[address] evidence of acute intracranial abnormality. 2. No evidence of acute fracture in the cervical spine. 3. Postsurgical changes in the cervical spine as detailed above. Surgical hardware appears intact. 4. Degenerative disc disease and facet/ uncinate disease in the cervical spine as detailed above. 5. Bilateral adrenal nodules. Based on size and patient age, no follow-up im aging is needed for these nodules per ACR white paper on incidentally detected thyroid nodules, unless clinically indicated. Head CT-08/01/[address] evidence of acute intracranial abnormality. 2. No evidence of acute fracture in the cervical spine. 3. Postsurgical changes in the cervical spine as detailed above. Surgical hardware appears intact. 4. Degenerative disc disease and facet/ uncinate disease in the cervical spine as detailed above. 5. Bilateral adrenal nodules. Based on size and patient age, no follow-up imaging is needed for these nodules per ACR white paper on incidentally detected thyroid nodules, unless clinically indicated. Chest X ray- 08/01/25 Suggestion of a large hiatal hernia with left retrocardiac opacity. Echocardiogram-08/01/25 Normal LV size and function. Mild concentric hypertrophy. LVEF is 60-65%. RV is normal size and function. Thickened RV free wall. RVSP is estimated at 39 mmHg. Left atrium is severely dilated. RA appears mildly dilated. Trileaflet AV appears mildly sclerotic without stenosis or insufficiency. Mild MV annular calcification without stenosis. Moderate regurgitation. TV appears structurally normal with trace regurgitation. Normal pericardium. No effusion. Vital Signs Date Time Temp Pulse Resp B/P (MAP) Pulse Ox O2 Delivery O2 Flow Rate FiO2 08/03/25 10:00 98.6 79 15 121/62 (81) 95 Room Air 08/02/25 20:00 0.0 Laboratory Tests Test 08/01/25 23:22 08/02/25 03:48 08/02/25 05:27 08/03/25 05:08 Troponin I High Sensitivity 202 ng/L 113 ng/L Troponin I High Sens Percent Delta 65 % 44 % Troponin I Hi Sens Absolute Change 80 ng/L -89 ng/L White Blood Count 7.0 X10'3 6.3 X10'3 Red Blood Count 3.89 X10'6 3.84 X10'6 Hemoglobin 12.6 g/dl 12.4 g/dl Hematocrit 37.7 % 37.3 % Mean Corpuscular Volume 97.0 FL 97.3 FL Mean Corpuscular Hemoglobin 32.3 PG 32.2 PG Mean Corpuscular Hemoglobin Concent 33.3 g/dL 33.1 g/dL Red Cell Distribution Width 14.1 % 14.1 % Platelet Count 143 X10'3 131 X10'3 Mean Platelet Volume 10.3 FL 10.4 FL Neutrophils (%) (Auto) 72.9 % 67.4 % Lymphocytes (%) (Auto) 18.1 % 22.0 % Monocytes (%) (Auto) 7.0 % 7.7 % Eosinophils (%) (Auto) 1.5 % 2.3 % Basophils (%) (Auto) 0.5 % 0.6 % Neutrophils # (Auto) 5.1 X10'3 4.3 X10'3 Lymphocytes # (Auto) 1.3 X10'3 1.4 X10'3 Monocytes # (Auto) 0.5 X10'3 0.5 X10'3 Eosinophils # (Auto) 0.1 X10'3 0.1 X10'3 Basophils # (Auto) 0.0 X10'3 0.0 X10'3 CBC Comment Sodium Level 144 MMOL/L 144 MMOL/L Potassium Level 3.2 MMOL/L 3.7 MMOL/L Chloride Level 109 MMOL/L 112 MMOL/L Carbon Dioxide Level 27.4 MMOL/L 23.0 MMOL/L Anion Gap 8 9 Blood Urea Nitrogen 15 MG/DL 14 MG/DL Creatinine 0.75 MG/DL 0.67 MG/DL Estimated GFR/1.73 m2 75 ML/MIN 85 ML/MIN BUN/Creatinine Ratio 20.0 20.9 Glucose Level 66 MG/DL 85 MG/DL Calcium Level 8.1 MG/DL 8.2 MG/DL Albumin 2.8 G/DL 2.8 G/DL Triglycerides Level 122 MG/DL Cholesterol Level 226 MG/DL LDL Cholesterol 157 MG/DL HDL Cholesterol 58 MG/DL Cholesterol/HDL Ratio 3.9 Chemistry Comments Examination at discharge: Awake , alert and oriented to time,place, person,not in distress, wheelchair- bound HEENT: Mild laceration with xavi in occipital region of head, normocephalic, PERRLA, EOMI, anicteric sclera ; pink conjunctiva, moist mucos membranes Neck: Trachea midline. Supple, normal range of motion, no JVD, no lymphadenopathy Chest and Respiratory: Equal breath sounds bilaterally, no tachypnea, wheezing, ronchi,rubs .Chest wall is symmetric and without deformity. Cardiac: S1, S2 heard,Regular rate and rhythm, no murmurs ,no gallops, no rubs. Abdomen: Soft, No tenderness, No guarding or rigidity, Dinero's sign negative. normal bowel sounds x4 quadrant, no hepatosplenomegaly MSK: Range of motion of all extremities are normal. There is no joint pain or joint swelling or joint erythema. There is no muscle pain or tenderness or swelling. Multiple bruises over upper extremities. Contractures in both hands. Right knee surgical scar. Cervical spine scar. Extremities: warm, well-perfused, No cyanosis, clubbing, 2+ pulses felt Neurological: Mental status exam: alert and consciousness, orientation, memory, speech - Cranial nerve test: Cranial nerves II-XII intact. - Motor system: Normal Nutrition, normal tone, Power 5/5, no involuntary movements - Sensory system: Intact - Reflex testing: Biceps, triceps and knee reflexes 2+ - Cerebellar: Normal Skin: Warm and dry Advice on discharge: Advise to follow up with PCP in a week. During the discharge patient was advised to review her medications with her [facility] care physician and cut down on antidepressants, antipsychotics. Counseled about getting neurology referral for further evaluation of gait and balance problem. Advise to take aspirin 81 mg and atorvastatin 40 mg once daily , Oral. In the event of any chest pain or any other symptoms, call 911 or go to ED immediately. Time spent on discharge summary > 35 min Benjamin Eddy Internal Medicine Resident, PGY-1 *Problems/Diagnosis: (1) Age-related cognitive decline (2) Type 2 OK (myocardial infarction) (3) CHRISTOPHER (acute kidney injury) (4) Vasomotor nephropathy (5) Hyperlipidemia (6) Hiatal hernia (7) Osteoporosis Total Time Spent on D/C: > 30 Minutes Date of Service: Aug 03, 2025 Billing Provider: RADHA ALEXIS MD Common Visit Codes: 96239-FPG/OBS DISCH DAY >30min GENARO MAYES, RES Aug 03, 2025 19:01 RADHA ALEXIS MD Aug 09, 2025 07:42
== END 2025-08-03 12:15 | disposition home or self-care (01) | DRG 73 ==
LOC: ER 07:19 → ED HOLD 10:20 → ORTHO 4S 14:10
PROVIDERS: ADMIT Family Medicine; ATTEND Family Medicine
DX: G90.89 Other disorders of autonomic nervous system (principal); I21.A1 Myocardial infarction type 2; N17.0 Acute kidney failure with tubular necrosis; Z66 Do not resuscitate; F02.C0 Dementia in other diseases classified elsewhere, severe, without behavioral disturbance, psychotic disturbance, mood disturbance, and anxiety; F32.A Depression, unspecified; S01.01XA Laceration without foreign body of scalp, initial encounter; W18.39XA Other fall on same level, initial encounter; G30.9 Alzheimer's disease, unspecified; F41.9 Anxiety disorder, unspecified; D44.9 Neoplasm of uncertain behavior of unspecified endocrine gland; E27.8 Other specified disorders of adrenal gland; Z99.3 Dependence on wheelchair; Z88.5 Allergy status to narcotic agent; Z91.013 Allergy to seafood; Z79.82 Long term (current) use of aspirin; Z79.899 Other long term (current) drug therapy; Y93.89 Activity, other specified; Y92.89 Other specified places as the place of occurrence of the external cause; Y99.8 Other external cause status
CPT/HCPCS: 36415; 70450; 71045; 72125; 80048; 80053; 80061; 81001; 83036; 83735; 83880; 84100; 84443; 84484; 85025; 85610; 85730; 90471; 90715; 93005; 93306; 97161; 97530; 99285; A6449; A9500; G0378; J1644; J7030